=== PATIENT | female | born 1990 | race Caucasian/White ===

== ENCOUNTER 2020-11-12 16:41 | Inpatient (IN) | payer MEDICAID, SELFPAY ==
[~2020-11-12] VITALS: Ht 165.1 cm; Wt 83.5 kg
[2020-11-12] MEDS ORDERED: PNV1TABL5 PO (17:46)
[2020-11-12] MEDS ORDERED: FERR-252 PO (17:46)
[2020-11-12] MEDS ORDERED: OSC500 PO (17:46)
[2020-11-12] MEDS ORDERED: OXYTOCIN 10 UNITS/ML VIAL IM SCH (17:50)
[2020-11-12] MEDS ORDERED: CARBOPROST 250 MCG/ML AMP IM PRN (17:50)
[2020-11-12] MEDS ORDERED: LACTATED RINGERS 1,000 ML IV SCH (17:50)
[2020-11-12] MEDS ORDERED: LACTATED RINGERS 500 ML IV SCH (17:50)
[2020-11-12] MEDS ORDERED: AMPICILLIN 2,000 MG in NACL 0.9% MINI-BAG PLUS 100 ML IV SCH (17:50)
[2020-11-12] MEDS ORDERED: METHYLERGONOVINE 0.2 MG/ML AMP IM PRN (17:50)
[2020-11-12 18:54] VITALS: BP 109/69
[2020-11-12 19:04] LABS: BASOPHILS % (AUTO) 0.3 % (0.0-2.0); EOSINOPHILS # (AUTO) 0.1 K/uL (0-0.4); EOSINOPHILS % (AUTO) 0.9 % (0.0-4.0); HEMATOCRIT 37.3 % (36-48); HEMOGLOBIN 12.6 g/dL (12.0-16.0); LYMPHOCYTES # (AUTO) 1.7 K/uL (2.5-16.5); LYMPHOCYTES % (AUTO) 22.2 % (20.5-51.1); MEAN CORPUSCULAR HEMOGLOBIN 31 pg (27-31); MEAN CORPUSCULAR HGB CONC 34 g/dL (33-37); MEAN CORPUSCULAR VOLUME 90.9 fL (80-94); MONOCYTES # (AUTO) 0.4 K/uL (0.8-1.0); MONOCYTES % (AUTO) 5.6 % (1.7-9.3); NEUTROPHILS # (AUTO) 5.4 K/uL (1.8-7.7); PLATELET COUNT (AUTO) 272 K/uL (140-450); RED CELL DISTRIBUTION WIDTH 17.2 % (11.6-13.7); WHITE BLOOD COUNT (AUTO) 7.6 K/uL (4.8-10.8)
[2020-11-12 19:12] LABS: CARBON DIOXIDE 19.5 mmol/L (21-32); CREATININE 0.8 mg/dL (0.6-1.3); POTASSIUM 4.5 mmol/L (3.5-5.1)
[2020-11-12 19:18] LABS: ALBUMIN 1.9 g/dL (3.4-5.0); TOTAL BILIRUBIN 0.3 mg/dL (0.0-1.0)
[2020-11-12 19:44] LABS: APPEARANCE,URINE CLEAR (CLEAR); BILIRUBIN,URINE NEGATIVE (NEGATIVE); BLOOD, URINE NEGATIVE (NEGATIVE); COLOR,URINE YELLOW (YELLOW); LEUKOCYTE ESTERASE ,URINE TRACE (NEGATIVE); NITRITE, URINE NEGATIVE (NEGATIVE); PH,URINE 6.5 (5.0-9.0); UGLUCOSE NEGATIVE (NEGATIVE)
[2020-11-12 19:50] LABS: RBC,URINE 0-5 /HPF (0-5)
[2020-11-12] MEDS ORDERED: AMPICILLIN 2,000 MG VIAL ONE (19:57)
[2020-11-12] MEDS ORDERED: AMPICILLIN 1,000 MG in NACL 0.9% MINI-BAG PLUS 50 ML IV SCH (20:00)
[2020-11-12] MEDS ORDERED: OXYTOCIN 20 UNITS in LACTATED RINGERS 1,000 ML IV SCH (21:25)
[2020-11-12] MEDS ORDERED: OXYTOCIN 20 UNITS/LR PREMIX 1,000 ML IV ONE (23:06)
[2020-11-12] MEDS ORDERED: AMPICILLIN 1,000 MG VIAL ONE (23:19)
[2020-11-13] MEDS ORDERED: ROPIVACAINE 0.2%/NS PREMIX 200 ML EPI ONE (05:34)
--- NOTE | 2020-11-13 08:52 | NUR ---
PATIENT HAS BEEN SCREENED AND CATEGORIZED LOW NUTRITION RISK. PATIENT WILL BE SEEN WITHIN 7 DAYS OF ADMISSION. 11/19/[address]
[2020-11-13] MEDS ORDERED: METHYLERGONOVINE 0.2 MG/ML AMP IM PRN (09:05)
[2020-11-13] MEDS ORDERED: BENZOCAINE/MENTHOL 20%-0.5% 60 GM CAN TP PRN (09:05)
[2020-11-13] MEDS ORDERED: MEASLES, MUMPS, AND RUBELLA 1 VIAL SQVAC ONE (09:05)
[2020-11-13] MEDS ORDERED: OXYTOCIN 10 UNITS/ML VIAL IM PRN (09:05)
[2020-11-13] MEDS ORDERED: IBUPROFEN 800 MG TAB PO PRN (09:05)
[2020-11-13] MEDS ORDERED: oxyCODONE/APAP 5/325 MG 1 TAB TAB PO PRN ×2 (09:05)
[2020-11-13] MEDS ORDERED: TEMAZEPAM 15 MG CAP PO PRN (09:05)
[2020-11-13] MEDS ORDERED: METHYLERGONOVINE 0.2 MG TAB PO PRN (09:05)
[2020-11-13] MEDS ORDERED: MEASLES, MUMPS, AND RUBELLA 1 VIAL SQVAC SCH (09:15)
[2020-11-13] MEDS ORDERED: DOCUSATE SOD/SENNA 50/8.6 MG 1 TAB PO SCH (21:00)
[2020-11-14 10:33] LABS: HEMATOCRIT 35.5 % (36-48); HEMOGLOBIN 11.8 g/dL (12.0-16.0)
[2020-11-14] MEDS ORDERED: IBUP-2213 PO (12:57)
== END 2020-11-14 15:05 | disposition home or self-care (01) | DRG 560 ==
LOC: MLD 16:41 → MFCC 11-13 12:55
PROVIDERS: ADMIT Obstetrics & Gynecology; ATTEND Obstetrics & Gynecology
PROC: 10E0XZZ Delivery of Products of Conception, External Approach (ICD-10-PCS; principal; 2020-11-13)
PROC: 3E0R3BZ Introduction of Anesthetic Agent into Spinal Canal, Percutaneous Approach (ICD-10-PCS; 2020-11-13)
PROC: 00HU33Z Insertion of Infusion Device into Spinal Canal, Percutaneous Approach (ICD-10-PCS; 2020-11-13)
PROC: 10907ZC Drainage of Amniotic Fluid, Therapeutic from Products of Conception, Via Natural or Artificial Opening (ICD-10-PCS; 2020-11-13)
PROC: 3E033VJ Introduction of Other Hormone into Peripheral Vein, Percutaneous Approach (ICD-10-PCS; 2020-11-13)
PROC: 3E0134Z Introduction of Serum, Toxoid and Vaccine into Subcutaneous Tissue, Percutaneous Approach (ICD-10-PCS; 2020-11-13)
PROC: 3E0234Z Introduction of Serum, Toxoid and Vaccine into Muscle, Percutaneous Approach (ICD-10-PCS; 2020-11-14)
DX: O98.52 Other viral diseases complicating childbirth (principal); U07.1 COVID-19; Z37.0 Single live birth; Z3A.39 39 weeks gestation of pregnancy; Z23 Encounter for immunization; R71.0 Precipitous drop in hematocrit
CPT/HCPCS: 36415; 51702; 59070; 59409; 80053; 81001; 85018; 85025; 86592; 86886; 86900; 86901; 87086; 87653-90; 90715; J0290; J2590; J2795; J7120